=== PATIENT | male | born 1995 | race American Indian/Alaskan Native ===

== ENCOUNTER → 2017-09-30 | Outpatient (CLI) | payer BC ==
--- NOTE | 2017-09-30 12:20 | Diagnostic Imaging Report ---
INDICATION: Cough with difficulty breathing. I have no previous. There is an abnormal mediastinal contour presumed to reflect an underlying right-sided aortic arch. There is no failure, effusion or pneumothorax. Cardiac situs appeared normal. No free air beneath the diaphragms. 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 Dictated by: Dictated on workstation # [id number]
== END ==
LOC: RAD 12:06
PROVIDERS: ATTEND Nurse Practitioner Family
DX: Q25.47 Right aortic arch (principal); R05 Cough; R06.02 Shortness of breath
CPT/HCPCS: 71020